=== PATIENT | female | born 1990 | race Caucasian/White ===

== ENCOUNTER 2020-05-29 09:44 | Outpatient (CLI) | payer OTHER ==
[2020-05-29 10:37] LABS: Amorphous Sediment,Urine Rare /hpf; Appearance,Urine Cloudy (Clear); Bacteria,Urine Occasional /hpf; Bilirubin,Urine Negative (Negative); Blood,Urine Negative (Negative); Color,Urine Yellow; Glucose,Urine (UA) Negative (Negative); Ketones,Urine Negative (Negative); Leukocyte Esterase,Urine Negative (Negative); Mucus,Urine Rare /hpf; Nitrite,Urine Negative (Negative); Protein,Urine Negative (Negative); RBC,Urine 1 /hpf (0-5); Specific Gravity,Urine 1.008 (1.001-1.035); Squamous Epithelial Cell,Urine 3 /hpf (0-4); Urobilinogen,Urine <2.0 mg/dL (<2.0); WBC,Urine 2 /hpf (0-5)
[2020-05-29 10:57] LABS: Protein/Creatinine Ratio,Urine 0.531
[2020-05-29 11:08] LABS: Basophils % (A) 0 %; Eosinophils # (A) 0.1 k/uL (0-0.7); Eosinophils % (A) 1 %; Lymphocytes # (A) 1.6 k/uL (1.0-4.8); Lymphocytes % (A) 18 %; MCH 31.1 pg (25.0-35.0); MCHC 34.3 g/dL (31.0-37.0); MCV 90.8 fL (80.0-100.0); Mean Platelet Volume 8.7; Monocytes # (A) 0.5 k/uL (0-1.0); Monocytes % (A) 5 %; Neutrophils # (A) 6.4 k/uL (1.3-7.7); Neutrophils % (A) 74 %; Platelet Count 169 k/uL (150-450); RBC 3.85 m/uL (3.80-5.40); RDW 13.9 % (11.5-15.5); WBC 8.7 k/uL (3.8-10.6)
[2020-05-29 11:19] LABS: ALT 11 U/L (4-34); AST 18 U/L (14-36); African American GFR (CKD) >90 (>60 ml/min/1.73 sqM); Blood Urea Nitrogen 6 mg/dL (7-17); LDH 342 U/L (313-618); Non-African American GFR(CKD) >90 (>60 ml/min/1.73 sqM); Uric Acid 3.4 mg/dL (3.7-7.4)
--- NOTE | 2020-05-30 07:27 | P.MSEPDOC ---
Presenting Problems - Arrival Data Date of Arrival on Unit: 05/29/20 Time of Arrival on Unit: 09:55 Mode of Transport: Ambulatory - Complaint OB-Reason for Admission/Chief Complaint: PIH Comment: Sent from [facility] by Dr. Salgado with script for PIH work up and serial BP Medical History - Information : 2 Para: 1 Term: 1 : 0 Abortions: Spontaneous or Elective: 0 Number of Living Children: 1 - Gestational Age Gestational Age by JAE (wks/days): 38 Weeks and 1 Days Review of Systems - Review of Systems Constitutional: No problems Breast: No problems ENT: No problems Cardiovascular: No problems Respiratory: No problems Gastrointestinal: No problems Genitourinary: No problems Musculoskeletal: No problems Neurological: No problems Skin: No problems Vital Signs - Temperature Temperature: 98.5 F Temperature Source: Oral - Pulse Right Sitting Brachial Pulse Rate: 107 Pulse Assessment Method: Automatic Cuff - Respirations Respiratory Rate: 16 Oxygen Delivery Method: Room Air O2 Sat by Pulse Oximetry: 98 - Blood Pressure Right Arm Sitting Blood Pressure: 130/89 Blood Pressure Mean: 102 Blood Pressure Source: Automatic Cuff Medical Screen Scoring (Pre) - Cervical Exam Dilation: Exam Deferred Effacement: Exam Deferred - Uterine Contractions Frequency: N/A Duration: N/A Intensity: N/A - Maternal Vital Signs Maternal Temperature: N/A Maternal Blood Pressure: N/A Signs of Preeclampsia: N/A Maternal Respirations: N/A - Maternal Trauma Maternal Trauma: N/A - Assessment - Baby A Baseline FHR: 130 Heart Rate - NICHD Category: Category I (Normal) = 0 NST: Reactive Position: N/A Station: N/A - Total Score - Baby A Total Score - Baby A: 0 - Total Score - Baby B Total Score - Baby B: 0 - Total Score - Baby C Total Score - Baby C: 0 - Level of Risk - Baby A Level of Risk - Baby A: Low (0-5) - Level of Risk - Baby B Level of Risk - Baby B: Low (0-5) - Level of Risk - Baby C Level of Risk - Baby C: Low (0-5) Physician Notification (Pre) - Physician Notified Physician Notified Date: 05/29/20 Physician Notified Time: 11:28 New Order Received: Yes - Notification Comment Comment: Heike cagle\Dr. Salgado, reviewed pts serial BPs and lab work including PC. ratio;reactive NST. States pt may be d/c home, to follow up as scheduled for cervidil on. Tuesday at 1600. Disposition - Disposition OB Disposition: Discharge to home, Written follow up instructions reviewed Discharge Date: 05/29/20 Discharge Time: 11:30 I agree with the RN Medical Screening Exam: Yes Risk & Benefit of care provided described in d/c instruction: Yes Diagnosis: GESTATIONAL HTN W/O SIGNIFICANT PROTEINURIA, THIRD TRIMESTER
[2020-05-30 10:07] VITALS: BP 130/89; PULSE 107; RESP 16; TEMP 98.5
== END 2020-05-29 11:30 | disposition home or self-care (01) ==
LOC: FBPOP 09:44
PROVIDERS: ATTEND Obstetrics & Gynecology
DX: O13.3 Gestational [pregnancy-induced] hypertension without significant proteinuria, third trimester (principal); Z3A.38 38 weeks gestation of pregnancy
CPT/HCPCS: 59025; 81001; 82565; 82570; 83615; 84156; 84450; 84460; 84520; 84550; 85025

== ENCOUNTER 2020-06-02 16:05 | Inpatient (IN) | payer OTHER ==
[~2020-06-02 16:05] MED LIST: ROPIVACAINE 5MG/ML 20ML VIAL ONE; SODIUM CHLORIDE 0.9% 100 ML BAG ONE; fentaNYL (PF) 50 MCG/ML 5 ML AMP ONE
[2020-06-02] MEDS ORDERED: DINOPROSTONE 10 MG INSERT.ER VAGINAL ONE (16:25)
--- NOTE | 2020-06-02 17:23 | P.HPOB ---
History of Present Illness H&P Date: 06/02/20 Chief Complaint: Gestational hypertension This patient is a pleasant 29-year-old 2 para 1 female estimated date of confinement 06/11/2020 estimated gestational age 38-5/7 weeks who presents for induction secondary to gestational hypertension. Patient's history is such that she had elevated blood pressure last week in my office was sent over to labor and delivery in preeclampsia blood work was normal with the exception of an elevated PC ratio. Patient's blood pressure today is elevated is well 140/90 and initially presented for two-stage induction of labor however her cervix is favorable at this time. care has otherwise been uncomplicated. We have been watching growth and she does have a large for gestational age but no evidence of macrosomia. Review of Systems Genitourinary: Reports Menstruation: Reports amenorrhea Past Medical History Past Medical History: No Reported History Additional Past Medical History / Comment(s): Patient had a previous term vaginal delivery that was induced for gestational hypertension History of Any Multi-Drug Resistant Organisms: None Reported Past Surgical History: Orthopedic Surgery Additional Past Surgical History / Comment(s): Patient has had right foot surgery and nasal septal defect repaired Past Anesthesia/Blood Transfusion Reactions: No Reported Reaction Past Psychological History: No Psychological Hx Reported Smoking Status: Never smoker Past Alcohol Use History: None Reported Past Drug Use History: None Reported - Past Family History Father Family Medical History: AFIB, Coronary Artery Disease (CAD), Hypertension Medications and Allergies Home Medications Medication Instructions Recorded Confirmed Type Pnv,Calcium 72/Iron/Folic Acid 1 each PO DAILY 05/18/16 06/02/20 History [ Plus Tablet] Ferrous Sulfate [Slow Fe] 142 mg PO DAILY 05/29/20 06/02/20 History Allergies Allergy/AdvReac Type Severity Reaction Status Date / Time No Known Allergies Allergy Verified 06/02/20 16:24 Exam Vital Signs Temp Pulse Resp BP Pulse Ox 06/02/20 16:43 97.2 F L 94 18 141/92 98 Intake and Output 06/02/20 06/02/20 06/02/20 06:59 14:59 22:59 Other: Weight 99.7 kg - OBG Physical Exam Abdomen: bowel sounds normal, no diffuse tenderness, no bruit present, no guarding noted, no hepatomegaly, no splenomegaly, no mass Vulva: both: normal Vagina: normal moisture, no discharge Cervix: no lesion (Cervix is 2 and soft.), no discharge Uterus: enlarged (Fundal height 39 cm) Results blood work shows she is O positive, rubella immune, RPR nonreactive, hepatitis B was negative, Glucola was normal, ultrasounds have shown normal anatomy and most recent ultrasound last week showed 7 lbs. 14 oz. Up was positive Assessment and Plan Assessment: This is a pleasant 29-year-old 2 para 1 female 38-5/7 weeks gestation who is admitted to labor and delivery initially for two-stage induction of labor secondary to gestational hypertension. Patient's cervix however is favorable however she does have some blood pressure elevation therefore she will be admitted for induction tomorrow morning. We will begin antibiotics and Pitocin per protocol tomorrow morning. I am going to repeat her preeclampsia blood work as well. (1) 38 weeks gestation of Current Visit: Yes Status: Acute Code(s): Z3A.38 - 38 WEEKS GESTATION OF SNOMED Code(s): 55102369 (2) Gestational hypertension w/o significant proteinuria in 3rd trimester Current Visit: No Status: Acute Code(s): O13.3 - GESTATIONAL HTN W/O SIGNIFICANT PROTEINURIA, THIRD TRIMESTER SNOMED Code(s): 936685812 (3) Group B streptococcal carriage complicating Current Visit: Yes Status: Acute Code(s): O99.820 - STREPTOCOCCUS B CARRIER STATE COMPLICATING SNOMED Code(s): 995227408495684
[2020-06-03] MEDS ORDERED: METHYLERGONOVINE 0.2 MG/ML 1 ML AMP IM PRN (04:59)
[2020-06-03] MEDS ORDERED: OXYTOCIN 10 UNIT/ML 1 ML VIAL IM PRN (04:59)
[2020-06-03] MEDS ORDERED: LIDOCAINE 0.5% (PF) 5 MG/ML (50 ML SDV) SQ PRN (04:59)
[2020-06-03] MEDS ORDERED: OXYTOCIN 30 UNITS/500 ML NS 30 UNIT in SALINE 1 500ML.BAG IV SCH (04:59)
[2020-06-03] MEDS ORDERED: TERBUTALINE 1 MG/ML VIAL SQ PRN (04:59)
[2020-06-03] MEDS ORDERED: AMPICILLIN 2,000 MG in SODIUM CHLORIDE 0.9% 100 ML IVPB STA (04:59)
[2020-06-03] MEDS ORDERED: CARBOPROST TROMETHAMINE 250 MCG/ML 1 ML AMP IM PRN (04:59)
[2020-06-03] MEDS: LACTATED RINGERS 1,000 ML IV SCH ×2 (05:26→11:29)
[2020-06-03 05:31] LABS: Basophils % (A) 0 %; Eosinophils # (A) 0.1 k/uL (0-0.7); Eosinophils % (A) 2 %; HCT 35.8 % (34.0-46.0); HGB 12.2 gm/dL (11.4-16.0); Lymphocytes # (A) 2.1 k/uL (1.0-4.8); Lymphocytes % (A) 24 %; MCH 30.7 pg (25.0-35.0); MCHC 34.1 g/dL (31.0-37.0); MCV 90.2 fL (80.0-100.0); Mean Platelet Volume 8.7; Monocytes # (A) 0.5 k/uL (0-1.0); Monocytes % (A) 5 %; Neutrophils # (A) 5.8 k/uL (1.3-7.7); Neutrophils % (A) 66 %; Platelet Count 178 k/uL (150-450); RBC 3.97 m/uL (3.80-5.40); RDW 13.9 % (11.5-15.5); WBC 8.7 k/uL (3.8-10.6)
[2020-06-03 05:40] LABS: Uric Acid 3.6 mg/dL (3.7-7.4)
--- NOTE | 2020-06-03 05:52 | P.PN ---
Progress Note - Text Progress Note Date: 06/03/20 Patient's heart tones are category 1. She is continue to have contractions overnight and cervix is 2-3 cm dilated 50% effaced at this time. Artificial rupture membranes is done for clear fluid. Initial laboratory values are normal. Plan is Pitocin augmentation of labor and anticipate vaginal delivery.
[2020-06-03 05:53] LABS: INR 0.9 (<1.2); Partial Thromboplastin Time 24.3 sec (22.0-30.0); Prothrombin Time 9.4 sec (9.0-12.0)
[2020-06-03] MEDS: BUTORPHANOL 1 MG/ML 1 ML VIAL IV PRN ×2 (07:50→10:48)
[2020-06-03] MEDS ORDERED: AMPICILLIN 1,000 MG in SODIUM CHLORIDE 0.9% 50 ML IVPB SCH (08:59)
[2020-06-03] MEDS ORDERED: LANOLIN CREAM 5 GM TUBE TOPICAL PRN (14:08)
[2020-06-03] MEDS ORDERED: HYDROCORTISONE 2.5% RECTAL CREAM 30 GM TUBE RECTAL PRN (14:08)
[2020-06-03] MEDS ORDERED: diphenhydrAMINE 25 MG CAP PO PRN (14:08)
[2020-06-03] MEDS ORDERED: ZOLPIDEM 5 MG TAB PO PRN (14:08)
[2020-06-03] MEDS ORDERED: BISACODYL 10 MG SUPP RECTAL PRN (14:08)
[2020-06-03] MEDS ORDERED: WITCH HAZEL 1 EACH MED..PAD TOPICAL PRN (14:08)
[2020-06-03] MEDS ORDERED: SIMETHICONE 80 MG CHEWABLE PO PRN (14:08)
[2020-06-03] MEDS ORDERED: ACETAMINOPHEN TAB 325 MG TAB PO PRN (14:08)
[2020-06-03] MEDS ORDERED: BENZOCAINE/MENTHOL SPRAY 1 GM/SPRAY AEROSOL TOPICAL PRN (14:08)
[2020-06-03] MEDS ORDERED: OXYTOCIN 20 UNITS/1000 ML NS 1,000 ML IV SCH (14:08)
[2020-06-03] MEDS ORDERED: diphenhydrAMINE 50 MG/ML 1 ML VIAL IVP PRN (14:08)
--- NOTE | 2020-06-03 16:28 | P.PROBDLV ---
Vaginal Delivery Note - . Vaginal Delivery Note: Normal vaginal delivery viable male Apgars 9 and 9 delivery time is 1352 hrs. Please see dictated H&P for intimate details of this patient's admission. Brief summary this is a pleasant 29-year-old 2 para 1 female 38-5/7 weeks admitted for induction of labor secondary to gestational hypertension. Preeclampsia blood work is negative. Patient has artificial rupture membranes at 2-3 cm dilated and Pitocin augmentation of labor. She received 2 doses of Stadol for pain control and then an epidural. Thereafter patient quickly gets to complete pushes approximately 1 time. Pushes the head to the perineum and the posterior perineum is supported. We have controlled delivery of infant's head over the intact perineum. Mouth and nares are bulb suctioned. There is a nuchal cord which is easily reduced. With gentle downward traction we then have deliver the anterior and posterior shoulder and rest this 's body. This is a vigorous viable male infant Apgars are 9 and 9 delivery time was 1352 hrs. After delivery of the the is laid on the mother's abdomen and the cord is done pulsating, Is then doubly clamped and cut. The placenta is then spontaneously delivered intact. Inspection of perineum shows a superficial left vaginal laceration does not require repair. All counts are correct 3. There are no complications. Estimated blood loss at the time of delivery is 200 mL. Infant and mother stable delivery room.
[2020-06-03 19:42] VITALS: RESP 16
[2020-06-03] MEDS: SENNOSIDES-DOCUSATE SODIUM 1 EACH TAB PO SCH (19:57)
[2020-06-04] MEDS: IBUPROFEN 600 MG TAB PO PRN ×2 (00:25→12:23)
[2020-06-04] MEDS: SENNOSIDES-DOCUSATE SODIUM 1 EACH TAB PO SCH ×2 (01:17→07:44)
--- NOTE | 2020-06-04 06:25 | P.PNOBGVD ---
Subjective - Subjective Patient reports: Reports appetite normal, Reports voiding normally, Reports pain well controlled, Reports ambulating normally : doing well Objective - Latest Vital Signs Latest vital signs: Vital Signs Temp Pulse Resp BP 06/04/20 04:00 98.1 F 91 16 126/84 06/04/20 00:00 98.4 F 93 16 127/85 06/03/20 19:41 98.4 F 93 16 127/85 06/03/20 16:05 97.8 F 76 17 120/76 06/03/20 15:35 94 18 122/73 06/03/20 15:05 97.5 F L 81 17 130/83 06/03/20 14:46 82 18 132/80 06/03/20 14:35 88 18 126/76 06/03/20 14:20 99 18 137/89 06/03/20 14:05 98.2 F 111 H 18 137/90 Intake and Output 06/03/20 06/03/20 06/04/20 14:59 22:59 06:59 Intake Total 2000 Output Total 100 Balance 1900 Intake: IV 1999 Output: Urine 100 Other: # Voids 2 2 1 - Exam Lungs: bilateral: normal Chest: Normal S1, Normal S2 Extremities: Present: normal Abdomen: Present: normal appearance, soft Uterus: Present: normal, firm Assessment and Plan Assessment: day #1. Patient is resting without complaints and wishes to go home. Vital signs are stable and she is afebrile. Uterus is firm nontender she's having normal lochia. My impression this is a normal course. Plan is to continue routine care discharge home later today (1) 38 weeks gestation of Current Visit: Yes Status: Acute Code(s): Z3A.38 - 38 WEEKS GESTATION OF SNOMED Code(s): 23271413 (2) Gestational hypertension w/o significant proteinuria in 3rd trimester Current Visit: No Status: Acute Code(s): O13.3 - GESTATIONAL HTN W/O SIGNIFICANT PROTEINURIA, THIRD TRIMESTER SNOMED Code(s): 434955060 (3) Group B streptococcal carriage complicating Current Visit: Yes Status: Acute Code(s): O99.820 - STREPTOCOCCUS B CARRIER STATE COMPLICATING SNOMED Code(s): 561411568259234
--- NOTE | 2020-06-04 06:29 | P.DS ---
Providers Date of admission: 06/02/20 16:05 Expected date of discharge: 06/04/20 Attending physician: Rolando Salgado Primary care physician: Stated None - Discharge Diagnosis(es) (1) 38 weeks gestation of Current Visit: Yes Status: Acute (2) Gestational hypertension w/o significant proteinuria in 3rd trimester Current Visit: No Status: Acute (3) Group B streptococcal carriage complicating Current Visit: Yes Status: Acute Hospital Course: Please see dictated H&P for intimate details of this patient's admission. Brief summary this pleasant 29-year-old 2 para 1 female 38-5/7 weeks gestation admitted for delivery secondary to gestational hypertension. Patient is admitted she is uncomplicated induction of labor goes on have a vaginal delivery viable male infant. Please see dictated delivery note. day #1 patient is doing well felt to be stable for discharge home follow up with me in 6 weeks. Procedures: Induction of labor and normal vaginal delivery Patient Condition at Discharge: Good Plan - Discharge Summary New Discharge Prescriptions: New Ibuprofen [Motrin] 600 mg PO Q6HR PRN #40 tab PRN Reason: Mild Pain Or Fever >= 100.5 No Action Pnv,Calcium 72/Iron/Folic Acid [ Plus Tablet] 1 each PO DAILY Ferrous Sulfate [Slow Fe] 142 mg PO DAILY Discharge Medication List Pnv,Calcium 72/Iron/Folic Acid [ Plus Tablet] 1 each PO DAILY 05/18/16 [History] Ferrous Sulfate [Slow Fe] 142 mg PO DAILY 05/29/20 [History] Ibuprofen [Motrin] 600 mg PO Q6HR PRN #40 tab 06/04/20 [Rx] Follow up Appointment(s)/Referral(s): Rolando Salgado MD [STAFF PHYSICIAN] - 07/15/20 9:30 am Patient Instructions/Handouts: (DC) Activity/Diet/Wound Care/Special Instructions: No intercourse or anything per vagina for 6 weeks. Please call if any fever, chills, excessive vaginal bleeding, and/or abdominal pain. Discharge Disposition: HOME SELF-CARE
[2020-06-04 10:14] VITALS: BP 125/85; PULSE 71; TEMP 97.9
== END 2020-06-04 14:15 | disposition home or self-care (01) | DRG 807 ==
LOC: 4FBP 16:05
PROVIDERS: ADMIT Obstetrics & Gynecology; ATTEND Obstetrics & Gynecology
PROC: 10907ZC Drainage of Amniotic Fluid, Therapeutic from Products of Conception, Via Natural or Artificial Opening (ICD-10-PCS; principal; 2020-06-03)
PROC: 10E0XZZ Delivery of Products of Conception, External Approach (ICD-10-PCS; principal; 2020-06-03)
DX: O13.4 Gestational [pregnancy-induced] hypertension without significant proteinuria, complicating childbirth (principal); Z37.0 Single live birth; O69.81X0 Labor and delivery complicated by cord around neck, without compression, not applicable or unspecified; O99.824 Streptococcus B carrier state complicating childbirth; Z3A.38 38 weeks gestation of pregnancy; Z82.49 Family history of ischemic heart disease and other diseases of the circulatory system
CPT/HCPCS: 83615; 84450; 84460; 84550; 85025; 85610; 85730; 86850; 86900; 86901

== ENCOUNTER 2022-03-29 05:16 | Inpatient (IN) | payer OTHER ==
--- NOTE | 2022-03-28 18:22 | P.HPOB ---
History of Present Illness H&P Date: 03/28/22 Chief Complaint: Induction of labor, chronic HTN This patient is a pleasant 31 yr female estimated date of confinement 04/05/2022 estimated gestational age 39 0/7 weeks who presents for induction secondary to chronic HTN/gestation HTN. care is such that she has a history of gestational hypertension with her 1st two pregnancies. She was placed on 81 mg ASA this , but developed HTN at 11 weeks (176/100 and 147/108). She was placed on Labetalol and has done well since. She has been followed with serial growth ultrasounds and testing. has otherwise been uncomplicated. I have recommended delivery at this time. Review of Systems Constitutional: Reports as per HPI Genitourinary: Reports Menstruation: Reports amenorrhea Past Medical History Past Medical History: Hypertension Additional Past Medical History / Comment(s): Patient had 2 previous term vaginal deliveries that were induced for gestational hypertension. History of Any Multi-Drug Resistant Organisms: None Reported Past Surgical History: Orthopedic Surgery Additional Past Surgical History / Comment(s): Patient has had right foot surgery and nasal septal defect repaired Past Anesthesia/Blood Transfusion Reactions: No Reported Reaction Past Psychological History: No Psychological Hx Reported Additional Psychological History / Comment(s): Patient is a labor and delivery nurse. Past Alcohol Use History: None Reported Past Drug Use History: None Reported - Past Family History Father Family Medical History: AFIB, Coronary Artery Disease (CAD), Hypertension Medications and Allergies Home Medications Medication Instructions Recorded Confirmed Type Pnv,Calcium 72/Iron/Folic Acid 1 each PO DAILY 05/18/16 03/28/22 History [ Plus Tablet] Labetalol [Trandate] 100 BID 03/28/22 History Allergies Allergy/AdvReac Type Severity Reaction Status Date / Time No Known Allergies Allergy Verified 06/02/20 16:24 Exam - OBG Physical Exam Abdomen: bowel sounds normal, no diffuse tenderness, no bruit present, no guarding noted, no hepatomegaly, no splenomegaly, no mass Vulva: both: normal Vagina: normal moisture, no discharge Cervix: no lesion (Cervix is 1-2/thick), no discharge Uterus: enlarged (Fundal height is 40cm) Results Labs: O positive, Rubella Immune, KOV-MptP-NSF neg, Toxo neg, Glucola 142 with normal 3hr GTT, GBS positive, Ultrasound on 03/04 showed Vtx 6#5oz Normal. Assessment and Plan Assessment: This is a pleasant 31 yr female estimated gestational age 39 0/7 weeks with chronic hypertension/gestation hypertension who presents for induction. Positive GBS culture. Plan is induction of labor, antibiotic prophylaxis and anticipate normal vaginal delivery. (1) 39 weeks gestation of Status: Acute Code(s): Z3A.39 - 39 WEEKS GESTATION OF SNOMED Code(s): 22388206 (2) Gestational hypertension w/o significant proteinuria in 3rd trimester Status: Acute Code(s): O13.3 - GESTATIONAL HTN W/O SIGNIFICANT PROTEINURIA, THIRD TRIMESTER SNOMED Code(s): 57992681 (3) Group B streptococcal carriage complicating Status: Acute Code(s): O99.820 - STREPTOCOCCUS B CARRIER STATE COMPLICATING SNOMED Code(s): 722079904497023
[2022-03-29] MEDS ORDERED: CARBOPROST TROMETHAMINE 250 MCG/ML 1 ML AMP IM PRN (05:31)
[2022-03-29] MEDS ORDERED: LIDOCAINE 1% (PF) 10 MG/ML (30 ML SDV) SQ PRN (05:31)
[2022-03-29] MEDS ORDERED: METHYLERGONOVINE 0.2 MG/ML 1 ML AMP IM PRN (05:31)
[2022-03-29] MEDS ORDERED: OXYTOCIN 10 UNIT/ML 1 ML VIAL IM PRN (05:31)
[2022-03-29] MEDS ORDERED: AMPICILLIN 2,000 MG in SODIUM CHLORIDE 0.9% 100 ML IVPB STA (05:31)
[2022-03-29] MEDS ORDERED: OXYTOCIN 30 UNITS/500 ML NS 30 UNIT in SALINE 1 500ML.BAG IV SCH ×2 (05:31→16:53)
[2022-03-29] MEDS ORDERED: TERBUTALINE 1 MG/ML VIAL SQ PRN (05:31)
[2022-03-29 05:39] VITALS: RESP 16
[2022-03-29] MEDS: LACTATED RINGERS 1,000 ML IV SCH ×3 (05:44→13:08)
[2022-03-29 06:38] LABS: Basophils % (A) 0 %; Eosinophils # (A) 0.2 k/uL (0-0.7); Eosinophils % (A) 2 %; HCT 35.4 % (34.0-46.0); HGB 12.1 gm/dL (11.4-16.0); Lymphocytes % (A) 23 %; MCH 31.3 pg (25.0-35.0); MCHC 34.2 g/dL (31.0-37.0); MCV 91.7 fL (80.0-100.0); Mean Platelet Volume 8.6; Monocytes # (A) 0.5 k/uL (0-1.0); Monocytes % (A) 5 %; Neutrophils # (A) 5.8 k/uL (1.3-7.7); Neutrophils % (A) 67 %; Platelet Count 219 k/uL (150-450); RBC 3.86 m/uL (3.80-5.40); RDW 14.4 % (11.5-15.5); WBC 8.6 k/uL (3.8-10.6)
[2022-03-29] MEDS: AMPICILLIN 1,000 MG in SODIUM CHLORIDE 0.9% 50 ML IVPB SCH ×2 (10:00→14:06)
[2022-03-29] MEDS ORDERED: BUTORPHANOL 1 MG/ML 1 ML VIAL IV PRN (11:14)
[2022-03-29] MEDS ORDERED: ROPIVACAINE 100 MG, fentaNYL (PF). 200 MCG in SODIUM CHLORIDE 0.9% 76 ML EPIDURAL ONE (12:59)
[2022-03-29] MEDS ORDERED: ZOLPIDEM 5 MG TAB PO PRN (16:53)
[2022-03-29] MEDS ORDERED: SIMETHICONE 80 MG CHEWABLE PO PRN (16:53)
[2022-03-29] MEDS ORDERED: bisacodyL 10 MG SUPP RECTAL PRN (16:53)
[2022-03-29] MEDS ORDERED: diphenhydrAMINE 25 MG CAP PO PRN (16:53)
[2022-03-29] MEDS ORDERED: diphenhydrAMINE 50 MG/ML 1 ML VIAL IVP PRN (16:53)
[2022-03-29] MEDS ORDERED: ACETAMINOPHEN TAB 325 MG TAB PO PRN (16:53)
[2022-03-29] MEDS ORDERED: BENZOCAINE/MENTHOL SPRAY 1 GM/SPRAY AEROSOL TOPICAL PRN (16:53)
[2022-03-29] MEDS ORDERED: LANOLIN CREAM 5 GM TUBE TOPICAL PRN (16:53)
[2022-03-29] MEDS ORDERED: HYDROCORTISONE 2.5% RECTAL CREAM 30 GM TUBE RECTAL PRN (16:53)
[2022-03-29] MEDS: SENNOSIDES-DOCUSATE SODIUM 1 EACH TAB PO SCH ×2 (16:59→20:07)
--- NOTE | 2022-03-29 17:48 | P.PROBDLV ---
Vaginal Delivery Note - . Vaginal Delivery Note: Normal vaginal delivery viable male infant Apgars 8 and 9 delivery time is 1633 hrs. Please see dictated H&P for intimate details of this patient's admission. Brief summary this is a pleasant 31-year-old 3 para 2 female estimated gestational age 39-0/7 weeks with chronic hypertension/gestational hypertension who is admitted to labor and delivery for induction of labor. On admission patient is 2-3 cm dilated has artificial rupture membranes for clear fluid. Labor is induced with Pitocin per protocol. Patient is also given ampicillin in labor due to positive group B strep culture. Patient's labor progresses and she does get a dose of Stadol for pain control and then an epidural. Patient gets to complete with approximately 2 pushes pushes the head to the perineum. Posterior perineum is supported we have controlled delivery of the 's head over the intact perineum. It is straight occiput anterior presentation. Inspection shows a nuchal cord 3 which is loose and easily reduced. With gentle downward traction we then have deliver the anterior and posterior shoulder and rest this 's body. This is a vigorous viable male infant Apgars are 8 and 9 delivery time is 1633 hrs. After delivery of the infant the umbilical cord is allowed to quit pulsating is then doubly clamped and cut. It appears to be trivascular. Infant is laid on the mother's abdomen. The placenta is then spontaneously delivered intact. Inspection of the perineum shows no lacerations and no repairs. All counts are correct 3. Estimated blood loss is about 100 mL. There are no complications. Infant and mother are stable delivery room
[2022-03-29] MEDS: IBUPROFEN 600 MG TAB PO PRN (21:05)
[2022-03-30] MEDS: IBUPROFEN 600 MG TAB PO PRN ×3 (05:12→21:36)
--- NOTE | 2022-03-30 06:16 | P.PNOBGVD ---
Subjective - Subjective Patient reports: Reports appetite normal, Reports voiding normally, Reports pain well controlled, Reports ambulating normally : doing well Objective - Latest Vital Signs Latest vital signs: Vital Signs Temp Pulse Resp BP Pulse Ox 03/30/22 04:30 98.1 F 87 16 131/89 98 03/30/22 00:00 97.5 F L 79 16 124/79 96 03/29/22 20:07 98.1 F 103 H 16 131/84 97 03/29/22 18:45 97.5 F L 91 16 121/71 03/29/22 18:16 78 16 122/75 03/29/22 17:46 82 16 121/83 03/29/22 17:31 93 16 113/72 03/29/22 17:16 102 H 16 114/72 03/29/22 17:01 94 16 119/75 03/29/22 16:46 98.1 F 110 H 16 137/82 Intake and Output 03/29/22 03/29/22 03/30/22 14:59 22:59 06:59 Intake Total 370.850 Output Total 412 Balance -41.150 Intake: Intake, IV Titration 370.850 Amount Oxytocin 30 Units/500 ml 188.767 Ns 30 unit In Saline 1 500ml.bag @ Per Protocol IV .Q0M DONTE Rx#:[id number] Oxytocin 30 Units/500 ml 182.083 Ns 30 unit In Saline 1 500ml.bag @ Per Protocol IV .Q0M DONTE Rx#:[id number] Output: Estimated Blood Loss 300 Output, Quantitative 112 Blood Loss Other: # Voids 3 1 2 - Exam Lungs: bilateral: normal Chest: Normal S1, Normal S2 Extremities: Present: normal Abdomen: Present: normal appearance, soft Uterus: Present: normal, firm Assessment and Plan Assessment: day #1. Patient is resting without complaints. Vital signs are stable her blood pressures good off medications. Patient does desire to go home. Uterus is firm nontender she's having normal lochia. My impression is that this is a normal course. Plan is to continue routine care, watch her blood pressures, discharge home later today. (1) 39 weeks gestation of Current Visit: No Status: Acute Code(s): Z3A.39 - 39 WEEKS GESTATION OF SNOMED Code(s): 36678000 (2) Gestational hypertension w/o significant proteinuria in 3rd trimester Current Visit: No Status: Acute Code(s): O13.3 - GESTATIONAL HTN W/O SIGNIFICANT PROTEINURIA, THIRD TRIMESTER SNOMED Code(s): 25981605 (3) Group B streptococcal carriage complicating Current Visit: No Status: Acute Code(s): O99.820 - STREPTOCOCCUS B CARRIER STATE COMPLICATING SNOMED Code(s): 919765576806243
--- NOTE | 2022-03-30 06:20 | P.DS ---
Providers Date of admission: 03/29/22 05:16 Expected date of discharge: 03/30/22 Attending physician: Rolando Salgado Primary care physician: Stated None - Discharge Diagnosis(es) (1) 39 weeks gestation of Current Visit: No Status: Acute (2) Gestational hypertension w/o significant proteinuria in 3rd trimester Current Visit: No Status: Acute (3) Group B streptococcal carriage complicating Current Visit: No Status: Acute Hospital Course: Please see dictated H&P and delivery note on this patient's admission and delivery. Brief summary this pleasant 31-year-old 3 para 2 female 39- 0/7 weeks gestation admitted to labor and delivery for induction secondary to chronic/gestational hypertension. Patient is admitted she is uncomplicated induction of labor was on have a vaginal delivery viable male infant. Please see dictated delivery note. day #1 patient wishes to go home. Patient's felt be stable for discharge home follow up with me in 6 weeks. 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 This time are going to hold on her labetalol blood for blood pressures go up will restart this at 100 mg by mouth twice a day. She'll call me if she has any questions. Procedures: Induction of labor normal vaginal delivery Patient Condition at Discharge: Good Plan - Discharge Summary Discharge Rx Participant: Yes New Discharge Prescriptions: New Ibuprofen [Motrin] 600 mg PO Q6HR PRN #30 tab PRN Reason: Mild Pain (Scale 1 To 3) No Action Pnv,Calcium 72/Iron/Folic Acid [ Plus Tablet] 1 each PO DAILY Labetalol [Trandate] 100 mg PO BID Discharge Medication List Pnv,Calcium 72/Iron/Folic Acid [ Plus Tablet] 1 each PO DAILY 05/18/16 [History] Labetalol [Trandate] 100 mg PO BID 03/28/22 [History] Ibuprofen [Motrin] 600 mg PO Q6HR PRN #30 tab 03/30/22 [Rx] Follow up Appointment(s)/Referral(s): Rolando Salgado MD [STAFF PHYSICIAN] - 05/17/22 10:15 am Patient Instructions/Handouts: Vaginal Delivery (DC) Activity/Diet/Wound Care/Special Instructions: No intercourse or anything per vagina for 6 weeks. Please call if any fever, chills, excessive vaginal bleeding, and/or abdominal pain. Discharge Disposition: HOME SELF-CARE
[2022-03-30 07:10] LABS: Basophils # (A) 0.1 k/uL (0-0.2); Basophils % (A) 1 %; Eosinophils # (A) 0.2 k/uL (0-0.7); Eosinophils % (A) 2 %; HCT 33.6 % (34.0-46.0); HGB 11.3 gm/dL (11.4-16.0); Lymphocytes # (A) 2.1 k/uL (1.0-4.8); Lymphocytes % (A) 21 %; MCH 30.9 pg (25.0-35.0); MCHC 33.7 g/dL (31.0-37.0); MCV 91.6 fL (80.0-100.0); Mean Platelet Volume 8.4; Monocytes # (A) 0.6 k/uL (0-1.0); Monocytes % (A) 6 %; Neutrophils # (A) 6.6 k/uL (1.3-7.7); Neutrophils % (A) 68 %; Platelet Count 173 k/uL (150-450); RBC 3.66 m/uL (3.80-5.40); WBC 9.7 k/uL (3.8-10.6)
[2022-03-30] MEDS: SENNOSIDES-DOCUSATE SODIUM 1 EACH TAB PO SCH ×2 (08:41→21:36)
[2022-03-31] MEDS: IBUPROFEN 600 MG TAB PO PRN (04:10)
--- NOTE | 2022-03-31 06:06 | P.PN ---
Progress Note - Text Progress Note Date: 03/31/22 day #2. Patient is resting without complaints. She wanted to go home yesterday however her baby is required double phototherapy and therefore she has had to stay. Vital signs are stable and her blood pressures remain good. No medications. Plan is to continue routine care and discharge home later today.
[2022-03-31 08:31] VITALS: BP 148/89; PULSE 81; TEMP 98.5
[2022-03-31] MEDS: SENNOSIDES-DOCUSATE SODIUM 1 EACH TAB PO SCH (08:31)
== END 2022-03-31 10:47 | disposition home or self-care (01) | DRG 807 ==
LOC: 4FBP 05:16
PROVIDERS: ADMIT Obstetrics & Gynecology; ATTEND Obstetrics & Gynecology
PROC: 10E0XZZ Delivery of Products of Conception, External Approach (ICD-10-PCS; principal; 2022-03-29)
PROC: 10907ZC Drainage of Amniotic Fluid, Therapeutic from Products of Conception, Via Natural or Artificial Opening (ICD-10-PCS; 2022-03-29)
PROC: 3E033VJ Introduction of Other Hormone into Peripheral Vein, Percutaneous Approach (ICD-10-PCS; 2022-03-29)
PROC: 4A0HXCZ Measurement of Products of Conception, Cardiac Rate, External Approach (ICD-10-PCS; 2022-03-29)
DX: O10.92 Unspecified pre-existing hypertension complicating childbirth (principal); Z37.0 Single live birth; O69.81X0 Labor and delivery complicated by cord around neck, without compression, not applicable or unspecified; O99.824 Streptococcus B carrier state complicating childbirth; Z3A.39 39 weeks gestation of pregnancy
CPT/HCPCS: 85025; 88307